=== PATIENT | male | born 1960 | race Caucasian/White ===

== ENCOUNTER → 2019-07-27 | Outpatient (CLI) | payer MEDICARE ==
[2019-07-27 11:14] LABS: Basophils # (A) 0.1 k/uL (0-0.2); Basophils % (A) 1 %; Eosinophils # (A) 0.1 k/uL (0-0.7); Eosinophils % (A) 1 %; HCT 49.1 % (39.0-53.0); HGB 16.7 gm/dL (13.0-17.5); Lymphocytes # (A) 1.3 k/uL (1.0-4.8); Lymphocytes % (A) 23 %; MCH 31.2 pg (25.0-35.0); MCV 91.9 fL (80.0-100.0); Mean Platelet Volume 8.4; Monocytes # (A) 0.4 k/uL (0-1.0); Monocytes % (A) 7 %; Neutrophils # (A) 3.8 k/uL (1.3-7.7); Neutrophils % (A) 66 %; Platelet Count 278 k/uL (150-450); RBC 5.35 m/uL (4.30-5.90); RDW 11.9 % (11.5-15.5); WBC 5.8 k/uL (3.8-10.6)
[2019-07-27 13:44] LABS: Erythrocyte Sedimentation Rate 2 mm/hr (0-15)
[2019-07-27 17:57] LABS: ALT 37 U/L (10-49); AST 26 U/L (14-35); African American GFR (CKD) 120.6 (60.0-200.0); C Reactive Protein <0.4 mg/dL (0.0-0.8); Calcium 9.2 mg/dL (8.7-10.3); Carbon Dioxide 24.6 mmol/L (21.6-31.8); Chloride 105 mmol/L (96-109); Potassium 4.4 mmol/L (3.5-5.5); Sodium 136 mmol/L (135-145)
== END | disposition home or self-care (01) ==
LOC: LABWHC1 10:30
PROVIDERS: ATTEND Internal Medicine Rheumatology
DX: M25.50 Pain in unspecified joint (principal); M06.4 Inflammatory polyarthropathy; Z79.899 Other long term (current) drug therapy
CPT/HCPCS: 36415; 80051; 82040; 82310; 82565; 84450; 84460; 84520; 85025; 85652; 86140

== ENCOUNTER → 2019-09-21 | Outpatient (CLI) | payer MEDICARE ==
--- NOTE | 2019-09-21 10:33 | XR ---
EXAMINATION TYPE: XR chest 2V DATE OF EXAM: 09/21/2019 COMPARISON: NONE HISTORY: Cough TECHNIQUE: Frontal and lateral views of the chest are obtained. FINDINGS: There is no focal air space opacity, pleural effusion, or pneumothorax seen. The cardiac silhouette size is within normal limits. The osseous structures are intact. Biapical pleural thicke liudmila is present. IMPRESSION: No acute cardiopulmonary process.
--- NOTE | 2019-09-21 10:34 | XR ---
Lumbar spine HISTORY: Spondylosis 3 views of lumbar spine There is a spinal curvature present. Lumbar vertebral bodies show preserved height and bone mineraliz ation. There is multilevel spondylosis. Loss of disc at intervertebral levels is present especially L 4-5 and L5-S1 with associated vacuum phenomenon. Sclerosis present in the posterior elements. Atheros clerotic vascular calcifications are present within the aorta. IMPRESSION: Degenerative disc disease, facet arthropathy. Spinal curvature.
[2019-09-21 10:53] LABS: Basophils # (A) 0.1 k/uL (0-0.2); Basophils % (A) 1 %; Eosinophils # (A) 0.1 k/uL (0-0.7); Eosinophils % (A) 1 %; HCT 47.6 % (39.0-53.0); HGB 15.9 gm/dL (13.0-17.5); Lymphocytes % (A) 20 %; MCH 31.5 pg (25.0-35.0); MCHC 33.4 g/dL (31.0-37.0); MCV 94.4 fL (80.0-100.0); Mean Platelet Volume 8.4; Monocytes # (A) 0.4 k/uL (0-1.0); Monocytes % (A) 7 %; Neutrophils # (A) 3.5 k/uL (1.3-7.7); Neutrophils % (A) 68 %; Platelet Count 301 k/uL (150-450); RBC 5.05 m/uL (4.30-5.90); RDW 11.8 % (11.5-15.5); WBC 5.1 k/uL (3.8-10.6)
[2019-09-21 11:07] LABS: ALT 21 U/L (4-49); AST 24 U/L (17-59); African American GFR (CKD) >90 (>60 ml/min/1.73 sqM); Blood Urea Nitrogen 9 mg/dL (9-20); C Reactive Protein <5.0 mg/L (<10.0); Non-African American GFR(CKD) >90 (>60 ml/min/1.73 sqM)
--- NOTE | 2019-09-21 11:14 | XR ---
Cervical spine HISTORY: Spondylosis 7 views of the cervical spine Surgical clips are present in the left neck. There is multilevel facet arthropathy. No significant fo raminal encroachment evident. Reversal cervical lordosis may be due to muscle spasm. Minimal retrolis thesis grade 1 C6-7, anterolisthesis grade 1 C3-4 to C7-T1. Multilevel spondylosis is associated with loss of disc height especially at C4-5 and C5-6 and C6-7. IMPRESSION: Degenerative disc disease and facet arthropathy. Postop changes.
[2019-09-21 15:08] LABS: Erythrocyte Sedimentation Rate 2 mm/hr (0-15)
[2019-09-21 17:02] LABS: Hepatitis B Core IgM Non-Reactive (Non-Reactive); Hepatitis B Surface AB- Quant 3.5 mIU/mL; Hepatitis B Surface Antibody Non-Reactive (Non-Reactive)
== END | disposition home or self-care (01) ==
LOC: RADXRMAIN 09:36
PROVIDERS: ATTEND Internal Medicine Rheumatology
DX: R05 Cough (principal); M06.4 Inflammatory polyarthropathy; M25.50 Pain in unspecified joint; M43.00 Spondylolysis, site unspecified; M51.36 Other intervertebral disc degeneration, lumbar region
CPT/HCPCS: 71046; 72050; 72100; 82565; 84450; 84460; 84520; 85025; 85652; 86140; 86480; 86705; 86706; 87522